=== PATIENT | female | born 1965 | race Caucasian/White ===

== ENCOUNTER 2018-07-11 19:34 | Emergency (ER) | payer OTHER ==
[~2018-07-11] VITALS: Ht 165.1 cm; Wt 78.9 kg
== END 2018-07-12 18:47 | disposition home or self-care (01) ==
LOC: ER 19:34
DX: D64.89 Other specified anemias (principal)
CPT/HCPCS: 36430; 86904; 86922; P9021; 93005

== ENCOUNTER 2021-04-07 09:00 | Outpatient (CLI) | payer OTHER | END 2021-04-07 09:30 | disposition home or self-care (01) | LOC: PPH VACUNA 09:00 | PROVIDERS: ATTEND Emergency Medicine Pediatric Emergency Medicine | DX: Z23 Encounter for immunization (principal) ==

== ENCOUNTER 2021-06-29 13:21 | Inpatient (IN) | payer OTHER ==
[~2021-06-29] VITALS: Ht 165.1 cm; Wt 74.4 kg
[2021-06-29] MEDS ORDERED: SELE PO (13:44)
[2021-06-29] MEDS ORDERED: VITAMIN C100 MG PO (13:44)
[2021-06-29] MEDS ORDERED: ZINC PO (13:45)
[2021-06-29] MEDS ORDERED: IRON PO (13:45)
[2021-06-29] MEDS ORDERED: K-MG CITRATE 91 EACH PO (13:46)
[2021-06-29] MEDS ORDERED: [UNRECOGNIZED DRUG - OTHER] PO (13:46)
[2021-06-29] MEDS ORDERED: [UNRECOGNIZED DRUG - OTHER] PO (13:47)
[2021-07-06] MEDS ORDERED: IRON236 MG (15:50)
[2021-07-06] MEDS ORDERED: ZINC50 M1 (15:50)
[2021-07-06] MEDS ORDERED: SELENIUM200 MC2 (15:55)
[2021-07-06] MEDS ORDERED: BETA CAROT10000 UNIT (15:55)
[2021-07-06] MEDS ORDERED: VITAMIN A8000 UNIT (15:55)
[2021-07-06] MEDS ORDERED: CITRATE OF MAG296 ML (15:56)
[2021-07-06] MEDS ORDERED: CHLOROPHYLL 201 EACH (15:57)
[2021-07-09] MEDS ORDERED: DUI500 PO (07:30)
[2021-07-09] MEDS ORDERED: ELIQUIS2.5 MG PO (07:30)
[2021-07-09] MEDS ORDERED: PERCOCET 5-3251 EACH PO (07:30)
== END 2021-07-09 12:38 | DRG 470 ==
LOC: SURH 07-06 07:00 → MEDI 07-06 07:00 → O/R 07-06 07:00 → SURH 07-06 11:45 → MEDI 07-07 15:36
PROVIDERS: ADMIT Orthopaedic Surgery; ATTEND Orthopaedic Surgery
PROC: 0SR90JZ Replacement of Right Hip Joint with Synthetic Substitute, Open Approach (ICD-10-PCS; principal; 2021-07-06 07:00)
DX: M16.11 Unilateral primary osteoarthritis, right hip (principal); D62 Acute posthemorrhagic anemia; M89.751 Major osseous defect, right pelvic region and thigh; M70.61 Trochanteric bursitis, right hip; I78.0 Hereditary hemorrhagic telangiectasia